=== PATIENT | female | born 1980 ===

== ENCOUNTER 2018-05-17 15:14 | Emergency (ER) | payer MEDICAID, OTHER ==
[~2018-05-17] VITALS: Ht 162.6 cm; Wt 65.8 kg
[2018-05-17] MEDS ORDERED: POM PO (15:34)
[2018-05-17] MEDS ORDERED: SODIUM CHLORIDE 0.9% 1,000 ML IV ONE (15:45)
[2018-05-17 16:10] LABS: Basophils # (auto) 0 uL; Eosinophils # (auto) 0 uL; Lymphocytes # (auto) 0.6 uL; Monocytes # (auto) 0.6 uL; Neutrophils # (auto) 9.3 uL; Neutrophils % (auto) 88.8 % (37.0-80.0); Platelet Count (auto) 231 10^3/uL (140-450); White Blood Cell 10.5 10^3/uL (4.4-10.8)
[2018-05-17 16:12] LABS: Basophils % (auto) 0.4 % (0.0-2.0); Hematocrit 39.2 % (36.0-46.0); Hemoglobin 13.6 g/dL (12.2-16.2); Lymphocytes % (auto) 5.5 % (10.0-50.0); Mean Corpuscular Hemoglobin 35.4 pg (28.0-32.0); Mean Corpuscular Hgb Conc. 34.8 g/dL (32.0-36.0); Mean Corpuscular Volume 101.5 fL (80.0-100.0); Monocytes % (auto) 5.3 % (0.0-12.0); Red Blood Cells 3.86 10^6/uL (4.0-5.20); Red Cell Distribution Width 14.8 % (11.8-14.3)
[2018-05-17 16:25] LABS: Albumin 4.5 g/dL (3.4-5.0); BUN/Creatinine Ratio 17.6; Calcium 8.6 mg/dL (8.5-10.1); Potassium 3.4 mmol/L (3.5-5.1)
[2018-05-17 16:28] LABS: Bilirubin, Total 1.8 mg/dL (0.2-1.0); Total Protein 8.8 g/dL (6.4-8.2)
[2018-05-17 21:13] LABS: Urine Bacteria FEW /hpf (None Seen); Urine Blood Negative /uL (Negative); Urine Specific Gravity 1.019 (1.001-1.035); Urine WBC 13 /hpf (0 - 5)
[2018-05-17] MEDS ORDERED: ONDANSETRON HCL 4 MG/2 ML VIAL IV ONE (22:30)
[2018-05-17] MEDS ORDERED: cefTRIAXone 1GM/10ml IVPUSH 10 ML IV ONE (22:30)
[2018-05-17 22:34] VITALS: BP 126/79
== END 2018-05-17 22:33 | disposition home or self-care (01) ==
LOC: ER 15:14
DX: N39.0 Urinary tract infection, site not specified (principal); F10.10 Alcohol abuse, uncomplicated; K20.9 Esophagitis, unspecified; R11.2 Nausea with vomiting, unspecified; F17.210 Nicotine dependence, cigarettes, uncomplicated; Z88.1 Allergy status to other antibiotic agents
CPT/HCPCS: 36415; 80053; 81001; 85025; 94761; 96361; 96374; 96375; 99284; J0696; J2405; J7030